=== PATIENT | female | born 1980 | race Caucasian/White ===

== ENCOUNTER → 2019-02-17 | Outpatient (CLI) | payer BC, OTHER ==
[~2019-02-17] MED LIST: BIRTH CONTROL PILL; DOC100 PO; HYDR10FO RC; LEVO75TA68 PO; LOR5 PO
--- NOTE | 2019-02-17 12:32 | RADIOLOGY IMAGING REPORT ---
FACILITY: [facility] PATIENT NAME: Carolann Brito : 1980 MR: [id number] V: [id number] EXAM DATE: ORDERING PHYSICIAN: [place] KAHN TECHNOLOGIST: Location: [facility] [place] Patient: Carolann Brito : 1980 Visit/Account:[id number] Date of Sevice: 02/17/2019 MRI right knee Indication: Right knee pain. Meniscus tear. Comparison: None available. Technique: Multiplanar, multisequence MRI examination is performed of the right knee without contrast . Findings: Medial compartment: No discrete tear of the medial meniscus. The articular cartilage surfaces are unremarkable. Lateral compartment: No discrete tear of the lateral meniscus. The articular cartilage surfaces are unremarkable. Patellofemoral compartment: There is full-thickness chondral loss of the median ridge and lateral facet patella cartilage with mu ltiple foci of underlying mild subchondral edema. There is also partial thickness chondral loss media l facet patella cartilage. Mild marginal osteophytosis patellofemoral compartment also noted. Bones and marrow: No acute fracture or dislocation. Ligaments and tendons: ACL and PCL are intact. The extensor mechanism is intact. The MCL is intact. The iliotibial band, biceps femoris tendon, and the fibular collateral ligament is intact The popliteus tendon is also intact. Soft tissues: There is no significant joint effusion. Nonspecific mild amount of edema within the popliteal fossa region could represent mild posterior cap sular injury. Tiny Rebollar's cyst also seen. IMPRESSION: 1. Extensive chondral loss patellofemoral compartment cartilage. 2. No acute or aggressive osseous abnormality. Report Dictated By: Tj Welch MD at 02/17/2019 12:22 PM Report E-Signed By: Tj Welch MD at 02/17/2019 12:25 PM WSN:[id number]
--- NOTE | 2019-02-17 13:53 | RADIOLOGY IMAGING REPORT ---
FACILITY: [facility] PATIENT NAME: Carolann Brito : 1980 MR: [id number] V: [id number] EXAM DATE: ORDERING PHYSICIAN: [place] KAHN TECHNOLOGIST: Location: [facility] Patient: Carolann Brito : 1980 Visit/Account:[id number] Date of Sevice: 02/17/2019 Exam type: KNEE 4 VIEW RIGHT History: Right knee pain Comparison: None. Findings: There is mild to moderate narrowing of the lateral compartment of the right knee and moderate severe narrowing of the patellofemoral joint. There is mild narrowing the medial compartment with mild maria de jesus inal spurring. No evidence of acute fracture or dislocation IMPRESSION: 1. 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
== END ==
LOC: MRI 00:41
PROVIDERS: ATTEND Orthopaedic Surgery Hand Surgery
DX: M22.2X1 Patellofemoral disorders, right knee (principal); M17.11 Unilateral primary osteoarthritis, right knee
CPT/HCPCS: 73564